=== PATIENT | female | born 1980 | race Caucasian/White ===

== ENCOUNTER 2016-11-24 17:33 | Emergency (ER) | payer OTHER ==
[~2016-11-24] VITALS: Ht 165.1 cm; Wt 66.2 kg
[~2016-11-24 17:33] MED LIST: CARAFATE1 GM PO; CLARITIN,ALAVAR10 MG PO; KEFLEX500 MG PO; PEN-VEE K,VEET500 MG PO; PRILOSEC20 MG PO
[2016-11-24] MEDS ORDERED: AMOX TR-K CLV1 EAC4 PO (18:01)
[2016-11-24 18:56] LABS: ADD MIUA? YES; BILIRUBIN NEGATIVE; BLOOD SMALL; COLOR YELLOW ((YELLOW)); GLUCOSE (STRIP) NEGATIVE; KETONES NEGATIVE; LEUKOCYTES NEGATIVE; NITRITE NEGATIVE; PH, URINE 6.5 (5-8); PROTEIN (STRIP) NEGATIVE; SPECIFIC GRAVITY 1.004 (1.000-1.030); UROBILINOGEN 0.2 MG/DL (0.2-1.0)
[2016-11-24 19:04] LABS: HEMATOCRIT 43.5 % (36.0-46.0); MCH 32.5 PG (29.0-34.0); MCHC 34.5 G/DL (30.0-36.0); MCV 94.4 FL (83-99); PLATELET COUNT 194 K/uL (156-360); RBC DIS.WIDTH-CV 12.5 % (11.8-14.6); RBC DIS.WIDTH-SD 42.2 % (39-53); RED BLOOD COUNT 4.61 M/uL (3.80-5.20)
[2016-11-24 19:07] LABS: WHITE BLOOD COUNT 15.7 K/uL (4.1-10.2)
[2016-11-24 19:08] LABS: BACTERIA NONE SEEN /HPF; CASTS NONE SEEN /LPF; CRYSTALS NONE SEEN; EPITHELIAL CELLS RARE /HPF; MUCUS NONE SEEN /LPF; PATHOLOGICAL CAST NONE SEEN; RED BLOOD CELLS 0-5 /HPF (0-5); SMALL ROUND CELL NONE SEEN; WHITE BLOOD CELLS 0-5 /HPF (0-5); YEAST-LIKE CELL NONE SEEN
[2016-11-24 19:14] LABS: CHLORIDE 109 mEq/L (99-109); POTASSIUM 4.1 mEq/L (3.7-5.4); SODIUM 140 mEq/L (136-147)
[2016-11-24 19:16] LABS: GLUCOSE 90 mg/dL (70-99)
[2016-11-24 19:17] LABS: ANION GAP 11 MEQ/L (2-14)
[2016-11-24 19:20] LABS: GFR ESTIMATE (CALCULATED) > 59 mL/min/; UREA NITROGEN (BUN) 6 mg/dL (9-23)
[2016-11-24] MEDS ORDERED: GUAIFENESIN-DM1 EAC2 PO (20:12)
[2016-11-24] MEDS ORDERED: PREDNISONE20 MG PO (20:15)
[2016-11-24 20:24] VITALS: BP 110/86
== END 2016-11-24 20:30 | disposition home or self-care (01) ==
LOC: EME 17:33
PROVIDERS: Nurse Practitioner Family
DX: J02.0 Streptococcal pharyngitis (principal); R05 Cough; R06.02 Shortness of breath; J44.9 Chronic obstructive pulmonary disease, unspecified; K21.9 Gastro-esophageal reflux disease without esophagitis; Z87.442 Personal history of urinary calculi; F17.200 Nicotine dependence, unspecified, uncomplicated
CPT/HCPCS: 71020; 80048; 81003; 85027; 94640; 99281; 99284; J7512

== ENCOUNTER 2017-01-21 05:18 | Day surgery (SDC) | payer OTHER ==
[~2017-01-21] VITALS: Ht 162.6 cm; Wt 69.0 kg
[~2017-01-21 05:18] MED LIST changes: +AMOX TR-K CLV1 EAC4 PO; +GUAIFENESIN-DM1 EAC2 PO; +PREDNISONE20 MG PO; +ZYRTEC10 M2 PO
[2017-01-21 06:01] VITALS: BP 108/56
[2017-01-21 09:25] VITALS: BP 99/63
[2017-01-21 10:11] VITALS: BP 113/69
== END 2017-01-21 10:16 | disposition home or self-care (01) ==
LOC: SDC 05:18
PROC: 0DNW4ZZ Release Peritoneum, Percutaneous Endoscopic Approach (ICD-10-PCS; principal; 2017-01-21)
PROC: 0UB24ZZ Excision of Bilateral Ovaries, Percutaneous Endoscopic Approach (ICD-10-PCS; principal; 2017-01-21)
DX: R10.2 Pelvic and perineal pain (principal); N83.291 Other ovarian cyst, right side; N83.292 Other ovarian cyst, left side; K66.0 Peritoneal adhesions (postprocedural) (postinfection); G40.909 Epilepsy, unspecified, not intractable, without status epilepticus; F17.210 Nicotine dependence, cigarettes, uncomplicated; Z88.5 Allergy status to narcotic agent; Z88.6 Allergy status to analgesic agent; Z82.0 Family history of epilepsy and other diseases of the nervous system; Z82.49 Family history of ischemic heart disease and other diseases of the circulatory system; Z82.3 Family history of stroke; Z83.49 Family history of other endocrine, nutritional and metabolic diseases; Z81.8 Family history of other mental and behavioral disorders; Z83.3 Family history of diabetes mellitus
CPT/HCPCS: 88305; J0330; J1100; J1170; J1885; J2250; J2405; J3010

== ENCOUNTER 2017-03-03 12:46 | Emergency (ER) | payer OTHER ==
[~2017-03-03] VITALS: Ht 162.6 cm; Wt 67.5 kg
[2017-03-03 12:48] VITALS: BP 122/85
[2017-03-03] MEDS ORDERED: FLONASE16 G1 BOTH NARES (14:17)
== END 2017-03-03 14:45 | disposition home or self-care (01) ==
LOC: EME 12:46
DX: J32.9 Chronic sinusitis, unspecified (principal); J44.9 Chronic obstructive pulmonary disease, unspecified
CPT/HCPCS: 87651 90; 99281; 99284

== ENCOUNTER 2017-06-12 14:16 | Emergency (ER) | payer SELFPAY ==
[~2017-06-12] VITALS: Ht 162.6 cm; Wt 70.3 kg
[~2017-06-12 14:16] MED LIST changes: +FLONASE16 G1 BOTH NARES
[2017-06-12 16:27] VITALS: BP 123/74
== END 2017-06-12 16:27 | disposition home or self-care (01) ==
LOC: EME 14:16
DX: M79.671 Pain in right foot (principal)
CPT/HCPCS: 73630; 99281; 99284

== ENCOUNTER 2017-07-21 19:25 | Emergency (ER) | payer OTHER ==
[~2017-07-21] VITALS: Ht 162.6 cm; Wt 68.0 kg
[2017-07-21] MEDS ORDERED: BENADRYL25 MG PO (19:34)
[2017-07-21] MEDS ORDERED: ESTROVEN 155 M155 MG PO (19:45)
[2017-07-21 21:02] VITALS: BP 112/76
== END 2017-07-21 21:03 | disposition home or self-care (01) ==
LOC: EME 19:25
DX: S93.401A Sprain of unspecified ligament of right ankle, initial encounter (principal); X50.1XXA Overexertion from prolonged static or awkward postures, initial encounter; F41.9 Anxiety disorder, unspecified; F32.9 Major depressive disorder, single episode, unspecified; Z88.8 Allergy status to other drugs, medicaments and biological substances; F17.210 Nicotine dependence, cigarettes, uncomplicated
CPT/HCPCS: 73610; 99281; 99283

== ENCOUNTER 2018-01-09 10:12 | Emergency (ER) | payer OTHER ==
[~2018-01-09] VITALS: Ht 160 cm; Wt 73.3 kg
[~2018-01-09 10:12] MED LIST changes: +BENADRYL25 MG PO; +ESTROVEN 155 M155 MG PO
[2018-01-09 10:50] LABS: HEMATOCRIT 43.3 % (36.0-46.0); HEMOGLOBIN 14.8 G/DL (11.9-15.5); MCH 32.9 PG (29.0-34.0); MCHC 34.2 G/DL (30.0-36.0); MCV 96.2 FL (83-99); PLATELET COUNT 214 K/uL (156-360); RBC DIS.WIDTH-CV 12.6 % (11.8-14.6); RBC DIS.WIDTH-SD 45.2 % (39-53); WHITE BLOOD COUNT 10.1 K/uL (4.1-10.2)
[2018-01-09 11:01] LABS: ALBUMIN 4.1 g/dL (3.2-4.8); CHLORIDE 108 mEq/L (99-109); POTASSIUM 3.8 mEq/L (3.7-5.4)
[2018-01-09 11:02] LABS: SODIUM 144 mEq/L (136-147)
[2018-01-09 11:04] LABS: GLUCOSE 80 mg/dL (70-99)
[2018-01-09 11:06] LABS: TOTAL BILIRUBIN 0.2 mg/dL (0.0-1.0)
[2018-01-09 11:07] LABS: ALKALINE PHOSPHATASE 88 IU/L (3-129); CREATININE 0.7 mg/dL (0.6-1.3); GFR ESTIMATE (CALCULATED) > 59 mL/min/
[2018-01-09 11:09] LABS: AST (GOT) 15 IU/L (2-34); UREA NITROGEN (BUN) 8 mg/dL (9-23)
[2018-01-09 11:10] LABS: ALT (GPT) 12 IU/L (3-49)
[2018-01-09 11:16] LABS: QUANTITATIVE HCG < 4.0 MIU/ML
[2018-01-09 11:42] LABS: APPEARANCE CLEAR ((CLEAR)); BILIRUBIN NEGATIVE; BLOOD SMALL; COLOR YELLOW ((YELLOW)); GLUCOSE (STRIP) NEGATIVE; KETONES NEGATIVE; LEUKOCYTES NEGATIVE; NITRITE NEGATIVE; PROTEIN (STRIP) NEGATIVE; SPECIFIC GRAVITY 1.005 (1.000-1.030); UROBILINOGEN 0.2 MG/DL (0.2-1.0)
[2018-01-09 11:46] LABS: BACTERIA RARE /HPF; EPITHELIAL CELLS RARE /HPF; MUCUS TRACE /LPF; RED BLOOD CELLS 0-5 /HPF (0-5); UCUL ADDED? NO; WHITE BLOOD CELLS 0-5 /HPF (0-5)
[2018-01-09] MEDS ORDERED: MOTRIN600 MG PO (12:57)
[2018-01-09 13:17] VITALS: BP 118/71
== END 2018-01-09 13:18 | disposition home or self-care (01) ==
LOC: EME 10:12
DX: M54.5 Low back pain (principal); Z87.442 Personal history of urinary calculi; F17.200 Nicotine dependence, unspecified, uncomplicated; J44.9 Chronic obstructive pulmonary disease, unspecified; K21.9 Gastro-esophageal reflux disease without esophagitis; F32.9 Major depressive disorder, single episode, unspecified; F41.9 Anxiety disorder, unspecified; Z90.710 Acquired absence of both cervix and uterus; Z88.6 Allergy status to analgesic agent
CPT/HCPCS: 80053; 81003; 84702; 85027; 99281; 99284